=== PATIENT | male | born 1995 | race Caucasian/White ===

== ENCOUNTER → 2021-08-29 | Outpatient (CLI) | payer OTHER ==
[~2021-08-29] MED LIST: ACET1TAB55 PO; SODIUM BICARBONATE 8.4% INJ 50MEQ 50 ML VIAL As Ordered ONE
[2021-08-29 15:10] VITALS: BP 138/86
--- NOTE | 2021-08-29 16:48 | REP ---
INDICATION: LT SUPRACLAVICULAR MASS. COMPARISON: None. TECHNIQUE: The procedure was performed by ALYSHA Trevino, under the direct supervision of Dr. Marx. The risks and benefits of the procedure were explained to the patient and an informed consent was obtained both verbally and written. Directly prior to the start of the procedure a formal time-out was completed in the procedure room. FINDINGS: Using ultrasound guidance the left supraclavicular mass was localized. The skin was prepped and draped in a sterile fashion. Seven mL of buffered lidocaine was used as a local anesthetic. Using ultrasound guidance a 17/18 gauge coaxial needle biopsy system was inserted and advanced into the left supraclavicular mass. Six core biopsy specimens were obtained and sent to pathology for further analysis. The patient tolerated the procedure well and there were no immediate complications. After the appropriate amount of monitored convalescence the patient was discharged from the department. IMPRESSION: 1. Ultrasound-guided left supraclavicular mass biopsy. <Electronically signed by Kathryn Kendall > 08/29/21 1614 <Electronically signed by Nixon Marx > 08/29/21 1648
== END ==
LOC: M IRPRO 14:09 → EDBD 14:30
PROVIDERS: ATTEND Surgery
DX: D48.7 Neoplasm of uncertain behavior of other specified sites (principal)

== ENCOUNTER 2021-09-15 07:29 | Day surgery (SDC) | payer OTHER ==
[~2021-09-15] VITALS: Ht 172.7 cm; Wt 108.4 kg
[~2021-09-15 07:29] MED LIST changes: +CelecoXIB 400 MG CAP PO ONE; +DICL1GEL3; +FLUTISP; +LIDO1PAD TOP; +LR 1,000 ML IV ONE; +SILD25TA2 PO; -SODIUM BICARBONATE 8.4% INJ 50MEQ 50 ML VIAL As Ordered ONE
[2021-09-15] MEDS ORDERED: fentaNYL 250 MCG/5 ML INJECTION (J3010) As Ordered ONE (07:56)
[2021-09-15] MEDS ORDERED: propofoL 200 MG/20 ML VIAL As Ordered ONE ×2 (07:56→07:57)
[2021-09-15] MEDS ORDERED: MIDAZOLAM INJ 2MG/2ML VIAL (J2250 PER 1MG) As Ordered ONE (07:56)
[2021-09-15] MEDS ORDERED: ONDANSETRON 4MG/2ML VIAL As Ordered ONE (07:56)
[2021-09-15] MEDS ORDERED: LIDOCAINE 2% 100MG/5ML SDV (FOR ANES.) As Ordered ONE (07:56)
[2021-09-15] MEDS ORDERED: SUGAMMADEX SODIUM 500 MG/5 ML VIAL (BRIDION) As Ordered ONE (07:56)
[2021-09-15] MEDS ORDERED: ROCURONIUM BROMIDE 50 MG/5 ML VIAL As Ordered ONE (07:56)
[2021-09-15] MEDS ORDERED: dexameTHASONE 4 MG/ML 1ML VIAL (J1100 PER 1MG) As Ordered ONE (07:56)
[2021-09-15] MEDS ORDERED: BUPIVACAINE HCL 0.25% 30ML VIAL As Ordered ONE (09:33)
[2021-09-15] MEDS ORDERED: LIDOCAINE 1% SDV 30ML VIAL As Ordered ONE (09:33)
[2021-09-15] MEDS ORDERED: ACETAMINOPHEN 1000MG 100ML IV BTL (OFIRMEV) (J0131 PER 10MG) As Ordered ONE (10:13)
[2021-09-15] MEDS ORDERED: PHENYLephrine 500MCG 5ML (100MCG/ML) SYRINGE As Ordered ONE (10:45)
[2021-09-15] MEDS ORDERED: ESMOLOL INJ 100MG/10ML VIAL As Ordered ONE (11:06)
[2021-09-15] MEDS ORDERED: NORCO, ANEXSIA 5/325MG TABLET (HYDROcodone/ACETAMINOPHEN) PO PRN (12:05)
[2021-09-15] MEDS ORDERED: fentaNYL 100 MCG/2 ML INJECTION (J3010) IV PRN (12:05)
[2021-09-15] MEDS ORDERED: KETOROLAC 30 MG/ML 1ML VIAL IV PRN (12:05)
[2021-09-15] MEDS ORDERED: LR 1,000 ML IV SCH (12:05)
[2021-09-15] MEDS ORDERED: ONDANSETRON 4MG/2ML VIAL IV PRN (12:05)
[2021-09-15] MEDS ORDERED: oxyCODONE 5MG TAB PO PRN (12:05)
--- NOTE | 2021-09-15 14:12 | ROOPDOC ---
[facility] Report Of Operation Report of Operation DATE OF PROCEDURE: 09/15/21 PREPROCEDURE DIAGNOSES: Clavicular mass. POSTPROCEDURE DIAGNOSES: Infraclavicular intramuscular mass, leiomyoma on biopsy, PROCEDURE PERFORMED: Excision infraclavicular intramuscular mass. SURGEON: Sj Torres MD ANESTHESIA: General endotracheal anesthesia. Patient was initially had laryngeal mask airway but was desaturating in the middle of the case and this was converted to general endotracheal anesthesia. ESTIMATED BLOOD LOSS: Approximately 20 mL. COMPLICATIONS: Hematoma was noted postoperatively in the PACU. 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 He had a prior history of clavicular fracture which was repaired earlier this year. He will approach my office with regards to this. He came with a CT of the chest showing a mass located around the midportion of the clavicle inserting towards the head of the pectoralis major around the sternum medial clavicular portion. I had this biopsied preop and this was read as leiomyoma. He is brought in today for excision of the mass.. FINDINGS: Well formed soft tissue mass within the pectoralis major muscle. Well encapsulated within the muscle. Measures 6 x 8 x 3 cm when it was removed. SPECIMENS REMOVED: Leiomyoma 8 x 6 x 3 cm DESCRIPTION OF PROCEDURE: I have marked the site of the leiomyoma around his mid clavicular area on the left side in the preoperative holding area. No antibiotics is needed as this is a clean case. Patient was brought to the operating room, initially placed supine on the procedure table. Monitoring leads were placed. Laryngeal mask airway was established. He was then positioned with his left arm tucked. The area of the left chest and shoulder and neck prepped and draped in the usual sterile fashion. We paused for a surgical timeout using both pre-incision safety checklist to verify correct patient, procedure site and additional clinical information prior to beginning the procedure. I reposition them in slight reverse Trendelenburg to bring the site of the mass better in view. I liberally infiltrated the skin and subcutaneous tissue around the palpable lump with a mixture of 1% lidocaine and 1 4% Marcaine. A transverse skin incision was then created and this was deepened through to the subcutaneous tissue. I could feel the contours of the mass and this appears movable and nontethered. The overlying fascia of the pectoralis major was opened up to encountered the muscle belly and with both blunt and sharp dissection we were able to teased away the muscle fibers of the pectoralis major away from the well-formed mass and I circumferentially dissected around this. There were a few crossing vessels as well as vessel surrounding the capsule of the mass that I had to go through. One of them was quite well formed and this was suture- ligated. In the middle of the surgery I was informed that the patient was desaturating. We temporarily stopped our procedure and anesthesia converted to general endotracheal anesthesia and his airway was stabilized. We then proceeded with our surgery. We traced this towards its insertion to the tendon of the pectoralis major muscle and I clamped this and remove the mass intact. This measures 8 x 6 x 3 cm. The clamped and was suture-ligated with 2-0 Vicryl. When I reinspected the muscle bed there was some diffuse oozing as well as 1 visible venous vessel that was oozing this was again suture ligated after being controlled with a hemostat. I temporarily packed the wound bed and left Trinity and held pressure for about 3 minutes. When I looked back there was no sign of any active oozing. I then closed the wound in layers closing the fascia with 2-0 Vicryl, the deep subcutaneous and superficial subcutaneous layers were reapproximated to prevent seroma formation with 3-0 Vicryl. The skin incision was closed with 4-0 Monocryl in subcuticular fashion. Steri-Strips 4 x 4 gauze and Tegaderm was then used for dressing. Patient was awakened, extubated and brought to the recovery room in stable cond ition. When he arrived in the recovery room he was noted that the skin and soft tissue overlying the surgical site was boggy and more prominent, swollen. Thus a sandbag as well as ice compress was placed on top of the incision and he was closely monitored. He came back twice in a period of 2 hours to observe. At the end of 2 hours observation the swelling was better and he was starting to bruised up but there was no active oozing or bleeding. He remains hemodynamically stable he is comfortable. He was made aware of the hematoma and most likely this has tamponade itself. He was forewarned about the expected swelling, possible seroma and bruising of the skin. SJ TORRES MD Sep 15, 2021 14:12
[2021-09-15 14:45] VITALS: BP 127/73
== END 2021-09-15 14:55 | disposition home or self-care (01) ==
LOC: M SDC 07:29
PROVIDERS: ATTEND Surgery
DX: D21.9 Benign neoplasm of connective and other soft tissue, unspecified (principal); D56.9 Thalassemia, unspecified; N52.9 Male erectile dysfunction, unspecified; Z79.899 Other long term (current) drug therapy; M54.9 Dorsalgia, unspecified
CPT/HCPCS: 11406; 12032; 88305; J0131; J1100; J2250; J2370; J2405; J3010